=== PATIENT | female | born 1980 | race Two or more races ===

== ENCOUNTER 2023-01-09 08:47 | Emergency (ER) | payer MEDICAID ==
[~2023-01-09] VITALS: Ht 157.5 cm; Wt 76.2 kg
[2023-01-09 09:30] LABS: Basophils # (auto) 0.1 10 ^3/uL (0-0.2); Basophils % (auto) 0.8 % (0.0-2.0); Eosinophils # (auto) 0.5 10 ^3/uL (0-0.8); Eosinophils % (auto) 7.5 % (0.0-7.0); Hematocrit 39.9 % (36.0-46.0); Hemoglobin 13.5 g/dL (12.2-16.2); Lymphocytes % (auto) 31.4 % (10.0-50.0); Mean Corpuscular Hemoglobin 31.5 pg (28.0-32.0); Mean Corpuscular Hgb Conc. 33.9 g/dL (32.0-36.0); Mean Corpuscular Volume 92.9 fL (80.0-100.0); Monocytes # (auto) 0.4 10 ^3/uL (0-1.3); Monocytes % (auto) 6.7 % (0.0-12.0); Neutrophils # (auto) 3.4 10 ^3/uL (1.6-8.6); Neutrophils % (auto) 53.6 % (37.0-80.0); Nucleated Red Blood Cells % 0.1 %; Red Blood Cells 4.29 10^6/uL (4.0-5.20); Red Cell Distribution Width 13.2 % (11.8-14.3); White Blood Cell 6.4 10^3/uL (4.4-10.8)
[2023-01-09 09:47] LABS: Alanine Aminotransferase 55 U/L (7-40); Albumin 4.1 g/dL (3.2-4.8); Alkaline Phosphatase 66 U/L (46-116); Aspartate Aminotransferase 25 U/L (13-40); Blood Urea Nitrogen 9 mg/dL (9-23); Calcium 9.1 mg/dL (8.5-10.1); Carbon Dioxide 26 mmol/L (20-30); Glucose 106 mg/dL (74-106); Magnesium 1.7 mg/dL (1.6-2.6); Total Protein 6.3 g/dL (5.7-8.2)
[2023-01-09 09:48] LABS: INR 1.03 (0.9-1.15); Partial Thromboplastin Time 26.7 SEC (24.5-34.5); Prothrombin Time 10.8 sec (9.3-11.8)
[2023-01-09 10:33] LABS: Anion Gap 6 (5-15); Chloride 106 mmol/L (98-107); Potassium 4.3 mmol/L (3.5-5.1); Sodium 138 mmol/L (136-145)
[2023-01-09] MEDS ORDERED: KETOROLAC TROMETH 30 MG/ML 1ML VIAL IM ONE (13:45)
[2023-01-09] MEDS ORDERED: NAP500T GT (13:49)
[2023-01-09 13:56] VITALS: BP 119/82; PULSE 62; RESP 16; TEMP 98.1; O2SAT 97
== END 2023-01-09 15:14 | disposition home or self-care (01) ==
LOC: ER 08:47
DX: M62.838 Other muscle spasm (principal); Z79.899 Other long term (current) drug therapy; Z98.890 Other specified postprocedural states
CPT/HCPCS: 36415; 71045; 80053; 83735; 83880; 84484; 85025; 85610; 85730; 93005; 96372; 99285; J1885; J7030

== ENCOUNTER 2023-06-21 13:15 | Emergency (ER) | payer MEDICAID ==
[~2023-06-21] VITALS: Ht 144.8 cm; Wt 75.9 kg
[~2023-06-21 13:15] MED LIST: NAP500T GT
[2023-06-21] MEDS: SODIUM CHLORIDE 0.9% 1,000 ML IVB ONE (14:00)
[2023-06-21 14:25] LABS: Basophils # (auto) 0.1 10 ^3/uL (0-0.2); Basophils % (auto) 0.8 % (0.0-2.0); Eosinophils # (auto) 0.3 10 ^3/uL (0-0.8); Eosinophils % (auto) 4.2 % (0.0-7.0); Hematocrit 39.8 % (36.0-46.0); Hemoglobin 13.5 g/dL (12.2-16.2); Lymphocytes # (auto) 2.5 10 ^3/uL (0.4-5.4); Mean Corpuscular Hemoglobin 31.3 pg (28.0-32.0); Mean Corpuscular Hgb Conc. 33.9 g/dL (32.0-36.0); Mean Corpuscular Volume 92.4 fL (80.0-100.0); Monocytes # (auto) 0.5 10 ^3/uL (0-1.3); Neutrophils # (auto) 4.2 10 ^3/uL (1.6-8.6); Red Cell Distribution Width 13.6 % (11.8-14.3); White Blood Cell 7.7 10^3/uL (4.4-10.8)
[2023-06-21 14:43] VITALS: BP 114/71; PULSE 60; RESP 18; O2SAT 99
[2023-06-21 15:20] LABS: Urine Bacteria FEW /hpf (None Seen); Urine Blood Negative /uL (Negative); Urine Clarity Clear (Clear); Urine Color Yellow (Yellow); Urine Protein, UAD Negative (Negative); Urine Specific Gravity 1.025 (1.001-1.035); Urine Urobilinogen Normal (Negative); Urine WBC <1 /hpf (0 - 5)
[2023-06-21] MEDS: PANTOPRAZOLE 40 MG/10 ML VIAL INJ IV ONE (15:23)
[2023-06-21 15:30] LABS: Alanine Aminotransferase 25 U/L (7-40); Albumin 4.5 g/dL (3.2-4.8); Alkaline Phosphatase 72 U/L (46-116); Anion Gap 5 (5-15); Aspartate Aminotransferase 24 U/L (13-40); BUN/Creatinine Ratio 12.5 (10.0-20.0); Bilirubin, Total 0.8 mg/dL (0.2-1.0); Blood Urea Nitrogen 7 mg/dL (9-23); Calcium 9.6 mg/dL (8.5-10.1); Carbon Dioxide 26 mmol/L (20-30); Chloride 106 mmol/L (98-107); Glucose 90 mg/dL (74-106); Potassium 3.9 mmol/L (3.5-5.1); Sodium 137 mmol/L (136-145); Total Protein 7.2 g/dL (5.7-8.2)
[2023-06-21] MEDS ORDERED: ZOFR4T PO (15:45)
[2023-06-21] MEDS ORDERED: HYDR-4902 PO (15:45)
== END 2023-06-21 16:05 | disposition home or self-care (01) ==
LOC: ER 13:15
DX: K80.20 Calculus of gallbladder without cholecystitis without obstruction (principal); F17.210 Nicotine dependence, cigarettes, uncomplicated; Z79.899 Other long term (current) drug therapy
CPT/HCPCS: 36415; 74176; 80053; 81001; 85025; 96361; 96374; 99285; C9113; J7030

== ENCOUNTER 2023-08-01 16:10 | Emergency (ER) | payer MEDICAID ==
[~2023-08-01] VITALS: Ht 157.5 cm; Wt 77.1 kg
[~2023-08-01 16:10] MED LIST changes: +HYDR-4902 PO; +ZOFR4T PO
[2023-08-01 16:25] VITALS: BP 132/81; RESP 18; O2SAT 97
[2023-08-01 18:54] VITALS: PULSE 59
[2023-08-01 19:24] LABS: Basophils # (auto) 0.1 10 ^3/uL (0-0.2); Basophils % (auto) 0.5 % (0.0-2.0); Eosinophils # (auto) 0.2 10 ^3/uL (0-0.8); Eosinophils % (auto) 1.4 % (0.0-7.0); Hematocrit 41.7 % (36.0-46.0); Hemoglobin 13.8 g/dL (12.2-16.2); Lymphocytes # (auto) 3.5 10 ^3/uL (0.4-5.4); Lymphocytes % (auto) 28.1 % (10.0-50.0); Mean Corpuscular Hemoglobin 30.7 pg (28.0-32.0); Mean Corpuscular Volume 92.9 fL (80.0-100.0); Monocytes # (auto) 0.9 10 ^3/uL (0-1.3); Neutrophils # (auto) 7.8 10 ^3/uL (1.6-8.6); Nucleated Red Blood Cells % 0.1 %; Red Blood Cells 4.49 10^6/uL (4.0-5.20); Red Cell Distribution Width 13.7 % (11.8-14.3); White Blood Cell 12.4 10^3/uL (4.4-10.8)
[2023-08-01 19:33] LABS: Chloride 102 mmol/L (98-107); Potassium 3.9 mmol/L (3.5-5.1); Sodium 136 mmol/L (136-145)
[2023-08-01 19:34] LABS: Anion Gap 7 (5-15); Carbon Dioxide 27 mmol/L (20-30)
[2023-08-01 19:35] LABS: Calcium 10.2 mg/dL (8.7-10.4)
[2023-08-01] MEDS: MECLIZINE HCL 25 MG TAB PO ONE (19:37)
[2023-08-01 19:40] LABS: BUN/Creatinine Ratio 17.7 (10.0-20.0); Blood Urea Nitrogen 11 mg/dL (9-23); Glucose 104 mg/dL (74-106)
[2023-08-01] MEDS ORDERED: MECL25CH85 PO (21:21)
== END 2023-08-01 21:34 | disposition home or self-care (01) ==
LOC: ER 16:10
DX: R42 Dizziness and giddiness (principal); Z87.891 Personal history of nicotine dependence; Z79.899 Other long term (current) drug therapy
CPT/HCPCS: 36415; 70450; 80048; 85025; 93005; 99284; J8597

== ENCOUNTER 2024-01-25 13:46 | Emergency (ER) | payer MEDICAID ==
[~2024-01-25] VITALS: Ht 152.4 cm; Wt 74.5 kg
[~2024-01-25 13:46] MED LIST changes: +MECL25CH85 PO
[2024-01-25 14:35] VITALS: BP 104/70; PULSE 80; RESP 14; O2SAT 97
[2024-01-25 15:20] LABS: Basophils # (auto) 0.1 10 ^3/uL (0-0.2); Eosinophils # (auto) 0.2 10 ^3/uL (0-0.8); Eosinophils % (auto) 3.4 % (0.0-7.0); Hematocrit 41.8 % (36.0-46.0); Hemoglobin 14.7 g/dL (12.2-16.2); Lymphocytes # (auto) 1.9 10 ^3/uL (0.4-5.4); Mean Corpuscular Hemoglobin 32.4 pg (28.0-32.0); Mean Corpuscular Hgb Conc. 35.1 g/dL (32.0-36.0); Mean Corpuscular Volume 92.1 fL (80.0-100.0); Monocytes # (auto) 0.4 10 ^3/uL (0-1.3); Neutrophils # (auto) 3.2 10 ^3/uL (1.6-8.6); Neutrophils % (auto) 55.6 % (37.0-80.0); Nucleated Red Blood Cells % 0.1 %; Platelet Count (auto) 285 10^3/uL (140-450); Red Blood Cells 4.54 10^6/uL (4.0-5.20); Red Cell Distribution Width 13.5 % (11.8-14.3); White Blood Cell 5.8 10^3/uL (4.4-10.8)
[2024-01-25 15:32] LABS: Chloride 108 mmol/L (98-107); Potassium 3.8 mmol/L (3.5-5.1); Sodium 143 mmol/L (136-145)
[2024-01-25 15:34] LABS: Anion Gap 8 (5-15); Calcium 9.7 mg/dL (8.7-10.4); Carbon Dioxide 27 mmol/L (20-31)
[2024-01-25 15:39] LABS: BUN/Creatinine Ratio 11.5 (10.0-20.0); Blood Urea Nitrogen 9 mg/dL (9-23); Glucose 132 mg/dL (74-106)
== END 2024-01-25 18:26 | disposition left against medical advice (07) ==
LOC: ER 13:46
DX: G45.9 Transient cerebral ischemic attack, unspecified (principal); R73.9 Hyperglycemia, unspecified
CPT/HCPCS: 36415; 70450; 80048; 82962; 85025